=== PATIENT | male | born 1980 | race Caucasian/White ===

== ENCOUNTER 2022-09-01 14:33 | Emergency (ER) | payer BC ==
[2022-09-01] MEDS ORDERED: Tetracaine 0.5% PF 4 ML BOT ONE (16:05)
[2022-09-01] MEDS ORDERED: Fluorescein Opthalmic Strip ONE (16:05)
== END 2022-09-01 16:27 | disposition home or self-care (01) ==
LOC: MADERS 14:33
DX: T15.11XA Foreign body in conjunctival sac, right eye, initial encounter (principal); F17.220 Nicotine dependence, chewing tobacco, uncomplicated; X58.XXXA Exposure to other specified factors, initial encounter